=== PATIENT | male | born 1960 | race Caucasian/White ===

== ENCOUNTER 2020-12-16 20:47 | Emergency (ER) | payer OTHER ==
[~2020-12-16] VITALS: Ht 185.4 cm; Wt 90.7 kg
[2020-12-16 21:07] VITALS: BP 154/85
--- NOTE | 2020-12-16 21:10 | NUR ---
PT NISHANT RODRÍGUEZ FROM [facility]. PT WENT TO DIALYSIS THIS MORNING, HOWEVER HIS DIALYSIS CATHETER IS CLOGGED AND WAS UNABLE TO BE USED. PT IS BEING SENT HERE FOR FURTHER EVALUATION. MED HX: METABOLIC ENCEPHALOPATHY, CARDIAC ARREST, ESRD, HTN, DM, EPILEPSY, CHF, GTUBE, INTELECTUAL DISABILITY, ANEMIA, HYPERLIPIDEMIA, RIGHT EYE BLINDNESS, DYSPHAGIA, GERD ALLERGIES: NKA
--- NOTE | 2020-12-16 21:21 | NUR ---
BIBA TO ER BED 12
[2020-12-16 22:25] LABS: BASOPHILS # (AUTO) 0.1 K/uL (0.00-0.22); BASOPHILS % (AUTO) 0.7 % (0.0-2.0); EOSINOPHILS # (AUTO) 0.3 K/uL (0-0.4); EOSINOPHILS % (AUTO) 3.7 % (0.0-4.0); HEMATOCRIT 35.9 % (36-52); HEMOGLOBIN 12.2 g/dL (12.0-18.0); LYMPHOCYTES # (AUTO) 1.7 K/uL (2.0-11.5); LYMPHOCYTES % (AUTO) 19.1 % (20.5-51.1); MEAN CORPUSCULAR HEMOGLOBIN 31 pg (27-31); MEAN CORPUSCULAR HGB CONC 34 g/dL (33-37); MEAN CORPUSCULAR VOLUME 89.8 fL (80-94); MONOCYTES # (AUTO) 1.2 K/uL (0.8-1.0); MONOCYTES % (AUTO) 13.6 % (1.7-9.3); NEUTROPHILS # (AUTO) 5.5 K/uL (1.8-7.7); NEUTROPHILS % (AUTO) 62.9 % (42.2-75.2); PLATELET COUNT (AUTO) 219 K/uL (140-450); RED CELL DISTRIBUTION WIDTH 14.8 % (11.6-13.7); WHITE BLOOD COUNT (AUTO) 8.7 K/uL (4.8-10.8)
[2020-12-16 22:45] LABS: ALBUMIN 3.6 g/dL (3.4-5.0); ANION GAP 13.8 (8-16); CARBON DIOXIDE 27.4 mmol/L (21-32); MAGNESIUM 1.9 mg/dL (1.8-2.4); POTASSIUM 4.2 mmol/L (3.5-5.1); TOTAL BILIRUBIN 0.6 mg/dL (0.0-1.0)
[2020-12-16 22:49] LABS: CREATININE 5.6 mg/dL (0.6-1.3)
[2020-12-16 23:15] LABS: PROTHROMBIN TIME 9.5 secs (10.8-13.4)
--- NOTE | 2020-12-17 00:01 | NUR ---
Note farrah in EDM - 12/17/20 at 0233 by [email or web address] CALLED [facility], SPOKE TO MAGDALENA HALL. PER MAGDALENA, "WE RECEIVED AN ORDER FROM THE DIALYSIS CENTER, ORDER TO GO TO THE ER TO DECLOGGED/DECLOT THE PERMACATH. PLEASE DO WHATEVER IT TAKES TO MAKE THE FISTULA WORK BECAUSE THE PT NEEDS TO GO TO DIALYSIS."
--- NOTE | 2020-12-17 00:01 | NUR ---
CALLED [facility], SPOKE TO MAGDALENA HALL. PER MAGDALENA, "WE RECEIVED AN ORDER FROM THE DIALYSIS CENTER, ORDER TO GO TO THE ER TO DECLOGGED/DECLOT THE PERMACATH. PLEASE DO WHATEVER IT TAKES TO MAKE THE FISTULA WORK BECAUSE THE PT NEEDS TO GO TO DIALYSIS."
--- NOTE | 2020-12-17 04:32 | NUR ---
Patient appears to be resting comfortably in bed. Vital Signs within normal limits. Respirations even and unlabored.
[2020-12-17] MEDS ORDERED: MODA200T39 PO (06:12)
[2020-12-17] MEDS ORDERED: SENN-72 PO (06:12)
[2020-12-17] MEDS ORDERED: PRO5 PO (06:12)
[2020-12-17] MEDS ORDERED: HYDR-1098 PO (06:12)
[2020-12-17] MEDS ORDERED: ALBU3SOL83 IH (06:12)
[2020-12-17] MEDS ORDERED: LANS15EC28 PO (06:12)
[2020-12-17] MEDS ORDERED: METO25TA PO (06:12)
[2020-12-17] MEDS ORDERED: LEVE100S26 IV (06:12)
[2020-12-17] MEDS ORDERED: INSU3INS SQ (06:12)
[2020-12-17] MEDS ORDERED: SEVE800T6 PO (06:12)
[2020-12-17] MEDS ORDERED: ISOS10TA9 PO (06:12)
[2020-12-17] MEDS ORDERED: XALOS OP (06:12)
[2020-12-17] MEDS ORDERED: HUM SUBQ (06:12)
--- NOTE | 2020-12-17 08:07 | NUR ---
Patient to be transferred to [facility]. Is being transferred due to HIGHER LEVEL OF CARE. Receiving facility has accepting physician and available space. ER physician has signed transfer form. Patient or responsible alliance party has agreed to transfer and signed form. Patient belongings inventoried and will be sent with patient. Copy of nursing notes, lab reports, EKG, Physicians Orders and X-rays to be sent with patient. Report called to [facility]T [facility]SEQU[facility]INGER at receiving facility. [facility] ambulance service has been called for transfer. ETA is 1030.
--- NOTE | 2020-12-17 09:42 | NUR ---
PT SISTER WAS CALLED FOR CONSENT TO TRANSFER. DUNIA HALL AND BRUNO RN PHONE WITNESS FOR CONSENT TO TRANSFER TO [facility]. FAMILY NOTIFIED.
--- NOTE | 2020-12-17 09:46 | NUR ---
[facility] TRANSFER HERE FOR TRANSPORT TO [facility] #[id number]
[2020-12-17 09:52] VITALS: BP 187/71
== END 2020-12-17 09:46 | disposition short-term general hospital (02) ==
LOC: MED 20:47
DX: T82.41XA Breakdown (mechanical) of vascular dialysis catheter, initial encounter (principal); I13.2 Hypertensive heart and chronic kidney disease with heart failure and with stage 5 chronic kidney disease, or end stage renal disease; E11.22 Type 2 diabetes mellitus with diabetic chronic kidney disease; N18.6 End stage renal disease; I50.9 Heart failure, unspecified; Z99.2 Dependence on renal dialysis; Z79.4 Long term (current) use of insulin; Z79.899 Other long term (current) drug therapy
CPT/HCPCS: 36415; 71045; 80053; 82550; 82553; 83735; 83880; 84484; 85025; 85610; 85730; 87040; 93005; 93930; 99285